=== PATIENT | male | born 1980 | race Caucasian/White ===

== ENCOUNTER → 2021-08-31 02:10 | Outpatient (CLI) | payer BC, SELFPAY ==
[2021-08-31 20:10] LABS: SARS-CoV-2 RNA PCR Positive
== END ==
PROVIDERS: PCP Family Medicine; Visit Provider Surgery
DX: U07.1 COVID-19 (principal)
CPT/HCPCS: C9803; U0003; U0005

== ENCOUNTER 2021-09-22 01:23 | Day surgery (SDC) | payer BC, SELFPAY ==
[2021-08-26 14:35] VITALS: BMI 30.8
--- NOTE | 2021-08-26 14:43 | PC.NURSE ---
Addendum entered by Isabela Wise RN 09/17/21 14:29: Spoke with pt to review medical hx and any new meds. He stated that he is on Terdinasine PO for a toe fungus. All other medications the same. Pt will be here at 1000 am for 1200 pm surgery. reviewed drink and diet ordered. Original Note: Report to the Outpatient Waiting Room, entrance under the green pavilion located off [facility], at time 0600 on date 09/03/21. OR Time: 0730. - You will be asked a series of questions to screen for COVID 19 for your protection. - A mask is required within the hospital. - No visitors are allowed at this time. Preoperative COVID Testing Requirements: No COVID Test needed if: (proof is required; if not received patient will have Rapid Test prior to entry) - Patient has received COVID Vaccine at least 14 days prior to procedure date or - Patient has positive COVID test result within last 90 days of surgery date. COVID Test needed if above criteria is not met If not COVID vaccinated a COVID test must be conducted within 72 hours of surgery and patient is asked to isolate self from time of testing until procedure. You will go to the [facility] for your COVID testing. The [facility] is located at the corner of [address] [facility]. COVID TEST 08/31 AT 0905 You will only be called if COVID results are positive and your surgeon may reschedule your elective surgery date. Patients may have clear liquids (water, carbonated beverages, clear teas, apple juice) until 3 hours prior to surgery with a maximum of 20 ounces. - No food from midnight until time of surgery Take the following medications with a SIP of water the morning of surgery: NONE Medications to discontinue per physician: N/A Date to take last dose: N/A Please no make-up, nail mohawk, hairspray, perfume, deodorant, or body powder the day of surgery. No jewelry (including any body piercings) or valuables the day of surgery, leave them at home. Please take a shower or bath the night before, or the morning of, surgery with an antibacterial soap. Wear comfortable, loose fitting clothing. HIBICLENS SHOWER - Jewelry must be removed prior to entering the operating room. Rings and piercings that are not removed may be cut off. - The hospital will not accept responsibility for valuables. - Please leave all valuables, including medications, at home the day of surgery. If you are going home after surgery, a licensed roll off driver must drive you home. - NO public transportation without another adult. - We recommend that an adult stay with you for 24 hours following discharge. - We also recommend that you do not drive, make important decision, drink alcoholic beverages, or take any drugs that were not prescribed by your health care provider for at least 24 hours after your discharge time. Follow any additional instructions given to you from your surgeon. Telephone instructions given to CHRISTINE MEADOWS and asked if any additional questions and then verbalized understanding. Patient advised to call surgeon office or pre surgery nurse liaison [phone] if any additional questions.
[2021-09-22] VITALS (9 sets, daily range): BP systolic 95–151; BP diastolic 72–107; PULSE 78–96; RESP 13–20; TEMP 36.2–36.8; O2SAT 94–99
[2021-09-22] MEDS: LACTATED RINGERS 1,000 ML 30 ML IV CONT ×2 (10:29→13:36)
[2021-09-22] MEDS: KETOROLAC 15 MG/ML VIAL (*BKC) IV PUSH (10:30)
[2021-09-22] MEDS: ACETAMINOPHEN 500 MG TABLET 1000 MG PO (10:30)
--- NOTE | 2021-09-22 11:05 | WPDANESEPPF ---
Anes - Initial Pre Proc Eval Procedure: Operation Date: 09/22/21 12:00 Proposed Procedures p Open Incarcerated Umbilical Hernia Repair with Mesh - Sho Driver MD Date/Time: 09/22/21 11:05 Surgeon: Sho Driver MD Pre Op Diagnosis: incarcerated umbilical hernia Patient Data Age: 41 Gender: M Height: 1.91 m Weight: 107.4 kg Last Vital Signs Temp 36.8 C 09/22/21 10:06 Pulse 96 09/22/21 10:06 Resp 18 09/22/21 10:06 BP 149/107 H 09/22/21 10:06 Pulse Ox 99 09/22/21 10:06 Allergies Allergy/AdvReac Type Severity Reaction Status Date / Time No Known Allergies Allergy Mild Verified 09/22/21 10:46 Home Medications Medication Instructions Recorded Confirmed Type terbinafine HCl 250 mg tablet 250 mg PO DAILY #90 tablet 09/15/21 09/15/21 Rx cholecalciferol (vitamin D3) 1,250 1,250 mcg PO WEEKLY #12 tablet 09/17/21 Rx mcg (50,000 unit) tablet ciclopirox 0.77 % topical 1 applic TOPICAL QHS #60 ml 09/21/21 Rx suspension Patient hx anesthesia problems: none Family hx anesthesia problems: none Results Review: All pre-operative results and documents have been reviewed as part of the pre-operative evaluation. 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 Gender identity (if verbalized by the patient): Male Spiritual care concerns: No Agree to blood products: Yes Cheyenne Bowman Final PreProcedure Day of Procedure 09/22/21 11:05 Patient weight: overweight Heart: regular rate and rhythm Lungs: clear to auscultation Airway: Mallampati scale class II Neurological: alert and oriented Last oral intake: >/= 8 hours ASA classification: II Emergent: no Anesthetic plan: proceed Anesthesia type and monitoring: general ETT and standard monitoring Results Review: All pre-operative results and documents have been reviewed as part of the pre-operative evaluation. Informed Consent: The patient's anesthetic plan and its attendant risks and benefits were discussed with the patient/family/POA. Questions were solicited and answers provided to the satisfaction of the patient/family/POA.
--- NOTE | 2021-09-22 11:34 | P.HP_ITS ---
H&P: HPI History of Present Illness Date/Time: 09/22/21 11:34 Mr. Lockwood is a 41 y/o male who presents to our office at the request of Dr. Sánchez with complaints of a mass on his posterior neck and umbilical bulge. He states the mass has been present for 2 weeks. He reports intermittent drainage from the area. He is currently taking Bactrim. He states the umbilical bulge has been present for over 30 years. He states the bulge has not increased in size and is non-reducible. Chief Complaint: incarcerated [facility] Review of Systems Review of Systems: All systems reviewed & are unremarkable except as noted in HPI and below PMFSH Past Medical History Medical History History of COVID-19 06/2021 Surgical History Surgical History History of orchiectomy, unilateral 1993 - left due to undescended testis History of tooth extraction 2011 Family History Family History Mother Family history of diabetes mellitus in first degree relative Other Family history of atrial fibrillation Social History Social History Alcohol intake: current Alcohol use details: 1-2/YEAR Substance use: never Substance use type: does not use Living arrangements: with family Additional occupation/education comments: [employer] Gender identity (if verbalized by the patient): Male Spiritual care concerns: No Agree to blood products: Yes Meds Home Medications and Allergies Home Medications Medication Instructions Recorded Confirmed Type terbinafine HCl 250 mg tablet 250 mg PO DAILY #90 tablet 09/15/21 09/15/21 Rx cholecalciferol (vitamin D3) 1,250 1,250 mcg PO WEEKLY #12 tablet 09/17/21 Rx mcg (50,000 unit) tablet ciclopirox 0.77 % topical 1 applic TOPICAL QHS #60 ml 09/21/21 Rx suspension Allergies Allergy/AdvReac Type Severity Reaction Status Date / Time No Known Allergies Allergy Mild Verified 09/22/21 10:46 Vital Signs Vital Signs - 24 hr 09/22/21 10:06 Temperature 36.8 C Pulse Rate 96 Respiratory Rate 18 Blood Pressure 149/107 H Pulse Oximetry 99 Exam Const: General: cooperative, comfortable and no acute distress Nutritional Appearance: overweight Orientation/consciousness: patient oriented x3 Resp: Auscultation: clear to auscultation bilaterally Cardio: Rate: regular rate Rhythm: regular rhythm GI: Inspection: normal to inspection and distended GI Palp: Yes Soft to palpation, Yes Tenderness to palpation present (GI) and No Guarding due to palpation present (GI) Other: incarcerated [facility] Assessment and Plan Assessment and plan (1) Incarcerated umbilical hernia: Code(s): K42.0 - Umbilical hernia with obstruction, without gangrene Status: Acute Assessment and Plan: will setup for repair in OR (2) BMI 30.0-30.9,adult: Code(s): Z68.30 - Body mass index [BMI] 30.0-30.9, adult Status: Acute Assessment and Plan: dietary and lifestyle modifications
--- NOTE | 2021-09-22 11:36 | WPDHPUPDATE1 ---
History and Physical Update Update Date/Time: 09/22/21 11:36 History and Physical has been reviewed, including an updated exam of the patient. There are NO changes in the patient's condition. Risks, benefits, and alternatives have been discussed and questions answered. Patient agrees to proceed with procedure.
[2021-09-22] MEDS: ceFAZolin 2 GM/D5W 50 ML 2 GM/50 ML BAG IVPB (12:48)
[2021-09-22] MEDS: BUPIVACAINE/EPINEPHRINE 0.5% 10 ML VIAL 30 ML INFILTRATE (13:15)
--- NOTE | 2021-09-22 14:02 | W.PM.PROC2 ---
Procedure Note - Detailed Date of Procedure 09/22/21 Pre-op Diagnosis incarcerated umbilical hernia Post-op Diagnosis same Procedure Performed repair of incarcerated umbilical hernia with mesh Surgeon Sho Driver MD Anesthesia general Indications 41 y/o M presenting c incarcerated UH over last few wks Findings incarcerated UH c omentum, preperitoneal fat Description of Procedure The patient was taken to the operating room placed in the supine position. After adequate induction of general anesthesia, the patient was prepped and draped in the normal sterile fashion. A time-out was then done to verify the patient's identity, as well as the procedure being performed. I began by localizing the area around the umbilicus. I then made a curvilinear incision in the infraumbilical fold. This was taken down to level fascia. I then was able to bluntly dissect around the umbilicus. I then carefully dissected the umbilicus off the underlying fascia. I then noted a moderatel defect with incarcerated omentum and an adjacent loop of small intestine. I was able to mobilize the incarcerated tissue and reduce it back into the abdominal cavity. This left an approximately 3.5 cm defect. I then placed a 6.4 cm round piece of ventralex mesh in the underlay position. This was noted to have good, wide local coverage of the defect. I then closed this defect primarily with interrupted 0 Ethibond suture over the underlay mesh repair. I then reapproximated the umbilicus to the fascia with a 3 0 Vicryl U-stitch. The subcutaneous tissue was then closed with 3 0 Vicryl suture. The skin was closed with 4 0 Monocryl subcuticular suture. Dermabond was then placed on the wound. The patient tolerated the procedure well was extubated in the operating room postop. She will be transferred to the recovery room in stable condition. Implants 6.4 cm ventralex mesh in underlay position Estimated Blood Loss 5 Drains No Packing No Pathology none sent Complications No immediate complications Condition stable Disposition PACU
[2021-09-22] MEDS: fentaNYL CITRATE INJ (*CRX) 100 MCG/2 ML VIAL 25 MCG IV PUSH ×2 (14:13→14:24)
[2021-09-22] MEDS: oxyCODONE HCL (*CRX) 5 MG TAB IR PO (14:52)
== END 2021-09-22 15:43 | disposition home or self-care (01) ==
PROVIDERS: PCP Family Medicine; Visit Provider Surgery
PROC: (CPT 49587; principal; 2021-09-22 12:00)
DX: K42.0 Umbilical hernia with obstruction, without gangrene (principal); Z86.16 Personal history of COVID-19
CPT/HCPCS: 49587; A9270; C1781; J0690; J1100; J1885; J2250; J2405; J2704; J3010; J7120

== ENCOUNTER 2022-03-16 10:29 | Outpatient (CLI) | payer BC, SELFPAY ==
[2022-03-16 12:12] LABS: Alanine Aminotransferase 41 U/L (6-50); Albumin Level 4.5 g/dL (3.5-5.1); Alkaline Phosphatase 93 U/L (38-126); Anion Gap 7 mmol/L (8-16); Aspartate Amino Transferase 31 U/L (17-59); Bilirubin,Total 0.5 mg/dL (0.2-1.3); Blood Urea Nitrogen 10 mg/dL (9-20); Carbon Dioxide 27 mmol/L (22-30); Chloride 107 mmol/L (98-107); Estimated Glomerular Filt Rate > 60; Glucose 125 mg/dL (65-110); Sodium 141 mmol/L (137-145)
[2022-03-16 12:29] LABS: Vitamin D 25 Hydroxy 80.2 ng/mL
== END 2022-03-16 10:30 | disposition home or self-care (01) ==
LOC: ANHGOSHLAB 10:31
PROVIDERS: PCP Family Medicine; Visit Provider Family Medicine
DX: E55.9 Vitamin D deficiency, unspecified (principal); I10 Essential (primary) hypertension
CPT/HCPCS: 36415; 80053; 82306

== ENCOUNTER 2023-05-10 18:38 | Emergency (ER) | payer BC, SELFPAY ==
[2023-05-10 18:38] VITALS: BP 161/100; PULSE 88; RESP 16; TEMP 37.1; O2SAT 97
--- NOTE | 2023-05-10 18:53 | ED.SKABFB ---
HPI - Skin/Abscess/Foreign Bdy General Chief complaint: Skin/Abscess/Foreign Body Stated complaint: insect bite Time Seen by Provider: 05/10/23 18:53 Source: patient Mode of arrival: ambulatory Limitations: no limitations History of Present Illness HPI narrative: 43-year-old male with a history of orchiectomy for undescended testis, hypertension, dyslipidemia presents to the ER with -- questionable spider bite on the left medial arm 3 hours ago. Vesicular lesion at site of the bite. The patient noted linear erythematous swelling measuring around 8 cm. The lesion is erythematous. MD complaint: insect bite/sting Onset (ago): hour(s) ( 3 hours ago) Tetanus up to date: no Location: LUE Severity: mild Quality: pruritic Relieving factors: none Exacerbating factors: none Context: none Associated symptoms: denies other symptoms Treatments prior to arrival: none Related Data Home Medications Medication Instructions Recorded Confirmed cholecalciferol (vitamin D3) 250 500 mcg PO WEEKLY 03/16/22 05/10/23 mcg (10,000 unit) capsule Allergies Allergy/AdvReac Type Severity Reaction Status Date / Time No Known Allergies Allergy Mild Verified 05/10/23 18:45 Review of Systems Review of Systems: All systems reviewed & are unremarkable except as noted in HPI and below Constitutional: Constitutional: Reports as per HPI and Reports no additional constitutional complaints Eyes: Eyes: Reports as per HPI and Reports no additional eye complaints ENT: Reports system reviewed and no additional complaints, except as documented and Reports as per HPI Cardiovascular: Cardiovascular: Reports as per HPI and Reports no additional cardiovascular complaints Respiratory: Respiratory: Reports as per HPI and Reports no additional respiratory complaints Gastrointestinal: Gastrointestinal: Reports as per HPI and Reports no additional gastrointestinal complaints Genitourinary: Genitourinary: Reports no additional male genitourinary complaints and Reports as per HPI Musculoskeletal: Musculoskeletal: Reports no additional musculoskeletal complaints and Reports as per HPI Integumentary/Breasts: Skin/Breast: Reports system reviewed and no additional complaints, except as docu and Reports as per HPI Comments: L shaped red linear erythematous rash measuring 7 cm X 0.5 cm Neurologic: Reports system reviewed and no additional complaints, except as documented and Reports as per HPI Psychiatric: Psychiatric: Reports no additional psychiatric complaints and Reports as per HPI Endocrine: Endocrine: Reports no additional endocrine complaints and Reports as per HPI Hematologic/Lymphatic: Hematologic/Lymphatic: Reports no additional hematologic/lymphatic complaints and Reports as per HPI Allergic/Immunologic: Allergic/Immunologic: Reports no additional allergic/immunologic complaints and Reports as per HPI PMFSH Past Medical History Medical History Dyslipidemia Essential (primary) hypertension History of COVID-19 06/2021 Vitamin D deficiency Surgical History Surgical History H/O umbilical hernia repair (~08/2021) W/ MESH 09/22/21 History of orchiectomy, unilateral 1993 - left due to undescended testis History of tooth extraction 2011 Family History Family History Mother Family history of diabetes mellitus in first degree relative Other Family history of atrial fibrillation Social History Social History Social History: Aldo was from his , she this month. They had no children. He works for [employer]. Smoking status: Never smoker Alcohol intake: current Alcohol use details: 1-2/YEAR Substance use: never Substance use type: does not use Lack of Transportation: No
[2023-05-10] MEDS: TETANUS,DIPHTHERIA,AC PERTUSSIS ADULT 0.5 ML (ADACEL) IM (19:09)
[2023-05-10] MEDS: methylPREDNISolone SOD SUCC 125 MG VIAL IM (19:09)
[2023-05-10] MEDS: diphenhydrAMINE HCl CAP 25 MG CAPSULE PO (19:09)
[2023-05-10 19:38] VITALS: BP 161/100; PULSE 89; RESP 16; TEMP 36.9; O2SAT 98
== END 2023-05-10 19:41 | disposition home or self-care (01) ==
PROVIDERS: Emergency Provider Internal Medicine Critical Care Medicine; PCP Family Medicine
DX: S40.862A Insect bite (nonvenomous) of left upper arm, initial encounter (principal); L23.89 Allergic contact dermatitis due to other agents; I10 Essential (primary) hypertension; E78.5 Hyperlipidemia, unspecified; Z23 Encounter for immunization; W57.XXXA Bitten or stung by nonvenomous insect and other nonvenomous arthropods, initial encounter
CPT/HCPCS: 90471; 90715; 96372; 99283; A9270; J2930